=== PATIENT | female | born 1940 | race Caucasian/White ===

== ENCOUNTER 2017-10-18 15:27 | Emergency (ER) | payer MEDICARE, OTHER ==
[~2017-10-18] VITALS: Ht 167.6 cm; Wt 80.7 kg
[~2017-10-18 15:27] MED LIST: CHOL10002 PO; MULTI VITAMIN1 EACH PO; Norco 5-325 Ta1 EACH PO; OMEP20ER PO; Zestril40 MG PO
[2017-10-18 16:14] LABS: BASOPHILS ABSOLUTE AUTO 0.01 K/mm3 (0.00-0.23); BASOPHILS PERCENT AUTO 0 % (0-2); EOSINOPHILS ABSOLUTE AUTO 0.01 K/mm3 (0.00-0.68); EOSINOPHILS PERCENT AUTO 0 % (0-6); Hemoglobin 12.3 g/dL (11.5-16.0); IMMATURE GRAN ABSOLUTE AUTO 0.02 K/mm3 (0.00-0.10); IMMATURE GRAN PERCENT AUTO 0 % (0-1); LYMPHOCYTES ABSOLUTE AUTO 1.32 K/mm3 (0.84-5.20); LYMPHOCYTES PERCENT AUTO 19 % (21-46); MONOCYTES ABSOLUTE AUTO 0.51 K/mm3 (0.16-1.47); MONOCYTES PERCENT AUTO 7 % (4-13); Mean Corpuscular HGB 32.4 pg (26.0-34.0); Mean Corpuscular HGB Conc 34.2 g/dL (31.5-36.5); Mean Corpuscular Volume 95 fL (80-100); Mean Platelet Volume 9.5 fL (9.1-12.4); NEUTROPHILS ABSOLUTE AUTO 5.11 K/mm3 (1.96-9.15); NEUTROPHILS PERCENT AUTO 73 % (41-73); Platelet Count 191 K/mm3 (150-400); RDW Coefficient Variation 12.7 % (11.7-14.2); RDW Standard Deviation 44.2 fL (35.1-46.3); White Blood Cell Count 6.98 K/mm3 (4.00-11.30)
[2017-10-18 16:32] LABS: Alanine Aminotransfer (ALT/SGP 44 U/L (12-78); Albumin, Blood 3.6 g/dL (3.4-5.0); Albumin/Globulin Ratio 0.8 (0.8-1.8); Alk Phos 64 U/L (50-136); Anion Gap 10 mmol/L (6-16); Aspartate Aminotrans (AST/SGOT 34 U/L (12-37); Bilirubin, Total 0.6 mg/dL (0.1-1.0); Blood Urea Nitrogen 17 mg/dL (8-24); Bun/Creatinine Ratio 16.2 (12.0-20.0); CO2, Blood 20 mmol/L (21-32); Calcium, Blood 8.9 mg/dL (8.5-10.1); Chloride, Blood 103 mmol/L (98-108); Creatinine, Blood 1.05 mg/dL (0.40-1.00); Globulin, Blood 4.3 g/dL (2.2-4.0); Glomerular Filtration Rate 54 (60-); Glucose, Blood 117 mg/dL (70-99); Sodium, Blood 133 mmol/L (136-145); Total Protein, Blood 7.9 g/dL (6.4-8.2); Troponin I <0.015 ng/mL (0.000-0.040)
[2017-10-18] MEDS ORDERED: ACET325 PO (18:08)
[2017-10-18] MEDS ORDERED: ASPI81CH PO (18:09)
[2017-10-18] MEDS ORDERED: BENZ100A PO (18:50)
[2017-10-18] MEDS ORDERED: ALBU90OI INH (18:50)
[2017-10-18] MEDS ORDERED: Zithromax250 MG PO (18:50)
[2017-10-18] MEDS ORDERED: Prednisone20 MG PO (18:50)
== END 2017-10-18 21:06 | disposition home or self-care (01) ==
LOC: ER 15:27
PROVIDERS: Nurse Practitioner Family
DX: J18.9 Pneumonia, unspecified organism (principal); Z88.0 Allergy status to penicillin; Z88.8 Allergy status to other drugs, medicaments and biological substances; Z79.899 Other long term (current) drug therapy; Z79.82 Long term (current) use of aspirin; Z79.52 Long term (current) use of systemic steroids; Z79.2 Long term (current) use of antibiotics
CPT/HCPCS: 36415; 71046; 80053; 83880; 84484; 85025; 93005; 93010; 94640; 96374; 99284; J2930

== ENCOUNTER 2023-08-11 00:01 | Inpatient (IN) | payer MEDICARE, OTHER ==
[~2023-08-11] VITALS: Ht 167.6 cm; Wt 88.9 kg
[~2023-08-11 00:01] MED LIST changes: +ACET325 PO; +ALBU90OI INH; +ASPI81CH PO; +BENZ100A PO; +Prednisone20 MG PO; +Zithromax250 MG PO
[2023-08-11 00:35] LABS: BASOPHILS ABSOLUTE AUTO 0.04 K/mm3 (0.00-0.23); BASOPHILS PERCENT AUTO 1 % (0-2); EOSINOPHILS ABSOLUTE AUTO 0.02 K/mm3 (0.00-0.68); EOSINOPHILS PERCENT AUTO 0 % (0-6); Hematocrit 37.5 % (33.0-51.0); Hemoglobin 12.9 g/dL (11.5-16.0); IMMATURE GRAN ABSOLUTE AUTO 0.03 K/mm3 (0.00-0.10); IMMATURE GRAN PERCENT AUTO 0 % (0-1); LYMPHOCYTES PERCENT AUTO 22 % (21-46); MONOCYTES ABSOLUTE AUTO 0.59 K/mm3 (0.16-1.47); MONOCYTES PERCENT AUTO 7 % (4-13); Mean Corpuscular HGB 32.5 pg (26.0-34.0); Mean Corpuscular HGB Conc 34.4 g/dL (31.5-36.5); Mean Corpuscular Volume 95 fL (80-100); Mean Platelet Volume 10.3 fL (9.1-12.4); NEUTROPHILS ABSOLUTE AUTO 5.54 K/mm3 (1.96-9.15); NEUTROPHILS PERCENT AUTO 70 % (41-73); Platelet Count 230 K/mm3 (150-400); RDW Coefficient Variation 13.2 % (11.7-14.2); Red Blood Cell Count 3.97 M/mm3 (3.80-5.20); White Blood Cell Count 7.92 K/mm3 (4.00-11.30)
[2023-08-11 00:44] LABS: Base Excess Venous -1.7 mmol/L; Bicarbonate Venous 22.5 mmol/L (24.0-30.0); PCO2 Venous 45.4 mmHg (38-42); pH Blood Venous 7.34 (7.34-7.37)
[2023-08-11 01:41] LABS: Albumin, Blood 3.7 g/dL (3.4-5.0); Albumin/Globulin Ratio 0.9 (0.8-1.8); Bilirubin, Total 0.6 mg/dL (0.1-1.0); Bun/Creatinine Ratio 19.3 (12.0-20.0); Calcium, Blood 9.2 mg/dL (8.5-10.1); Creatinine, Blood 0.88 mg/dL (0.40-1.00); Globulin, Blood 3.9 g/dL (2.2-4.0); Potassium, Blood 3.8 mmol/L (3.5-5.5); Total Protein, Blood 7.6 g/dL (6.4-8.2)
[2023-08-11 01:46] LABS: Influenza A, PCR NEGATIVE (NEGATIVE); Influenza B, PCR NEGATIVE (NEGATIVE); SARS-Cov-2 (COVID-19) PCR, MMC NEGATIVE (NEGATIVE)
[2023-08-11 01:52] LABS: Resp Syncytial Virus, PCR POSITIVE (NEGATIVE)
[2023-08-11] MEDS ORDERED: Furosemide 10 MG / ML 2ML Vial IV ONE (02:50)
[2023-08-11] MEDS ORDERED: HydrALAZINE HCl 20 MG / ML 1ML Vial IV ONE (02:50)
[2023-08-11] MEDS ORDERED: Benzonatate 100 MG Cap PO ONE (02:55)
[2023-08-11] MEDS ORDERED: Ondansetron HCl 2 MG / ML 2ML Vial IV PRN (04:10)
[2023-08-11] MEDS ORDERED: FLU VACC QS2023-24(6MOS UP)/PF 60 MCG/0.5 ML SYRINGE IM ONE (04:10)
[2023-08-11] MEDS ORDERED: Acetaminophen 325 MG TABLET PO PRN (04:10)
[2023-08-11] MEDS ORDERED: Albuterol 2.5 MG/3 ML VIAL INH PRN (04:50)
[2023-08-11] MEDS ORDERED: Ipratropium/Albuterol SulF 2.5-0.5MG/3 ML Amp INH PRN (04:50)
[2023-08-11] MEDS ORDERED: NS 1,000 ML IV SCH (05:00)
[2023-08-11 06:05] VITALS: BP 209/81
[2023-08-11 06:07] VITALS: BP 190/96
[2023-08-11 07:25] VITALS: BP 163/75
[2023-08-11] MEDS ORDERED: MethylPREDNISolone Sod Succ 125 MG Vial IV SCH (09:00)
[2023-08-11] MEDS ORDERED: Furosemide 10 MG / ML 2ML Vial IV SCH (09:00)
[2023-08-11] MEDS ORDERED: HydrALAZINE HCl 20 MG / ML 1ML Vial IV PRN (09:00)
[2023-08-11 15:35] VITALS: BP 190/86
[2023-08-11] MEDS ORDERED: Losartan Potassium 25 MG Tab PO SCH (16:00)
--- NOTE | 2023-08-11 16:40 | NUR ---
DAYSHIFT SUMMARY Patient alert & oriented x4. Droplet isolation for RSV. Patient presents with SOB while in bed, wheezing noted t/o lungs. Sats stable on 4lpm O2 NC. IV Solumedrol adminstred, CBGs Q6H while taking steriods. Patient bedrest at this time, due to weakness, SOB with exertion. IV lasix administred Purewick in place. Vitals stable. Will continue plan of care.
[2023-08-11 20:27] VITALS: BP 130/59
[2023-08-11] MEDS ORDERED: Ipratropium/Albuterol SulF 2.5-0.5MG/3 ML Amp INH SCH (21:18)
--- NOTE | 2023-08-12 04:52 | NUR ---
Shift Summary Patient is an 83 year old female admitted with RSV and bronchitis. She is alert and oriented and uses her call light appropriatley. She has an IV in her left AC that is saline locked. She has wheezing and SOB. She recieved a prn breathing treatment early in the shift. This was helpful and she was able to sleep most of the night. She is on oxygen per NC at 4L. She has a purwick in place with yellow urine noted in the container. Bed is in low position with call light in reach. Side rails up x 2.
[2023-08-12 06:01] VITALS: BP 137/59
[2023-08-12 07:24] VITALS: BP 135/65
[2023-08-12] MEDS ORDERED: Losartan Potassium 25 MG Tab PO SCH (09:00)
[2023-08-12] MEDS ORDERED: Enoxaparin 40 MG/0.4 ML SYR SC SCH (09:00)
[2023-08-12 14:56] VITALS: BP 113/53
--- NOTE | 2023-08-12 16:54 | NUR ---
SHIFT SUMMARY PATIENT ON 4LPM O2 MOST OF DAY SATTING FROM 91-93%. SHE C/O BEING WEAK. SHE REFUSED TO GET UP TO COMMODE OR USE THE PUREWICK MUCH, AOX4 BUT FORGETS PUREWICK IS IN PLACE. PATIENT BLADDER SCANNED AT 359 WITH ONLY 100ML OUT. NOTIFIED. PUSH FLUIDS ORDERED AND TO GET PATIENT UP. 1 HOUR LATER PATIENT FOUND WALKING OUT OF RESTROOM WITH GOWN AND OXYGEN OFF, VISIBLY SHORT OF BREATH. SHE STATES SHE URINATED AND COULD NOT FIND HER CALL LIGHT. 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 POST VOID BLADDER SCAN IS 28ML.
[2023-08-12 22:25] VITALS: BP 127/67
--- NOTE | 2023-08-13 00:05 | NUR ---
RT ASSESSED PT, VOICED POST TREATMENT WAS BREATHING QUITE CONGESTED. ASKED IF PT MAY NEED MED TO ADDRESS IT. CALL PLACED TO MD FOR POSSIBLE ONE TIME ORDER OF LASIX, MD VOICED HE WOULD REVIEW CHART AND IF NEEDED HE WOULD ORDER IT. NO NEW ORDERS NOTED AT THIS TIME. PT HAS CALL LIGHT IN REACH. NOTE OCCASIONAL COUGH
[2023-08-13] MEDS ORDERED: Furosemide 10 MG/ML 4ML Vial IV ONE (02:10)
[2023-08-13 05:40] VITALS: BP 162/71
--- NOTE | 2023-08-13 06:49 | NUR ---
JEWEL BEARING MAKER SUMMARY BP ELEVATED, OTHERWISE VSS. DROPLET PRECAUIONS CONTINUE FOR RSV/BRONCHITIS. O2 4L/MIN PER NC. LUNG SOUNDS WERE QUITE CONGESTED EARLIER IN THE SHIFT. NOTIFIED AND ALDEN ORDERED AND ADMINISTERED - SEE MAR FOR DETAILS. PUREWICK IN USE PT CAN BGE UNSTEADY AND FOR SAFETY REASONS. A/O X 3. HAS BEEN RESTING MORE QUIETLY SINCE ALDEN ADMIN. CALL LIGHT IN REACH. RAILS UP X 2 FOR SAFETY, WILL CONINUE TO MONITOR
[2023-08-13 07:27] LABS: Bun/Creatinine Ratio 34.1 (12.0-20.0); Calcium, Blood 9.3 mg/dL (8.5-10.1); Creatinine, Blood 1.32 mg/dL (0.40-1.00); Potassium, Blood 3.6 mmol/L (3.5-5.5)
[2023-08-13 08:03] VITALS: BP 118/54
--- NOTE | 2023-08-13 11:33 | NUR ---
ASSUMED CARE OF PT
--- NOTE | 2023-08-13 17:58 | NUR ---
SHIFT SUMMARY: DROPLET PRECAUTIONS CONTINUED D/T RSV. PT IMPULSIVE AND FORGETFUL BUT IS EASILY DIRECTABLE. PT C/O PAIN IN LOWER BACK. MEDICATED PER EMAR. E. PT CURRENTLY ON 4L STATING SHE HAS BEEN HAVING INCREASED SOB. WHEEZE/CRACKLES NOTED THROUGHOUT BASES. CALL LIGHT IN REACH. BED IN LOWEST POSITION. WILL REPORT TO ONCOMING RN.
[2023-08-13 19:23] VITALS: BP 148/69
--- NOTE | 2023-08-14 04:04 | NUR ---
SHIFT SUMMARY DARRION WAS ALERT AND ANSWERED ALL ORIENTATION QUESTIONS CORRECTLY ON ASSESSMENT. PT DID BECOME INCREASINGLY CONFUSED DURING THE NIGHT, BUT IS EASILY REORIENTED AND REDIRECTABLE. PT DENIES INCREASED SOB FROM BASELINE OR CHEST PAIN/PRESSURE. PT HAS A MOIST SOUNDING INTERMITTENT COUGH, BUT IS MAINTAINING O2 SATS IN LOW 90'S ON 2L VIA NC. NO ACUTE EVENTS TONIGHT, NO NOTED CHANGES TO PT CONDITION. PT RESTING IN BED AT THIS TIME AT A LOW POSITION WITH CALL LIGHT IN REACH AND BED ALARM IN PLACE.
[2023-08-14 04:07] VITALS: BP 163/80
[2023-08-14 07:49] VITALS: BP 175/80
[2023-08-14] MEDS ORDERED: PredniSONE 20 MG Tab PO SCH (09:00)
[2023-08-14 15:51] VITALS: BP 132/50
--- NOTE | 2023-08-14 17:42 | NUR ---
SHIFT SUMMARY PATIENT A&OX3, EASILY REDIRECTABLE. DENIED CP/PRESSURE, HEADACHE, OR DIZZINESS. SOB NOTED. PRODUCTIVE COUGH T/O SHIFT. SHE HAS BEEN ON ROOM AIR SINCE THIS MORNING AND SATTING BETWEEN 90-93%. COMPLAINED OF "LITTLE PAIN" TO HER LUNGS/CHEST AND MEDICATED WITH APAP PER EMAR PROTOCOL. NO ACUTE CHANGES THIS SHIFT. SHE IS CURRENTLY LAYING IN BED. AT BEDSIDE. CALL LIGHT WITHIN REACH.
[2023-08-14 19:19] VITALS: BP 133/59
[2023-08-15 04:04] VITALS: BP 190/75
--- NOTE | 2023-08-15 05:20 | NUR ---
PATIENT IS ALERT AND ORIENTED. ON ROOM AIR. WITH PIV LINE ON LEFT AC PATENT AND INTACT. ON HD MWF, FISTULA ON RIGHT UPPER ARM, (+) THRILL. ON TELE MONITORING. COMPLAINT OF PAIN, MEDICATED ACCORDINGLY. NEEDS ATTENDED. CALL LIGHT WITHIN PATIENT'S REACH. WILL CONTINUE TO MONITOR.
--- NOTE | 2023-08-15 05:25 | NUR ---
PATIENT IS ALERT AND ORIENTED X3. ON CONT BIOX MONITORING. WITH PIV LINE ON LEFT AC PATENT AND INTACT. BLOOD SUGAR CHECK MONITORING WAS DECREASED TO TID. COMPLAINT OF PAIN, MEDICATED ACCORDINGLY. WAS ABLE TO AMBULATE TO THE [facility], ON SBA X1 USING A FWW. ON ISOLATION D/T RSV. BLOOD PRESSURE WENT UP THIS MORNING, MEDICATED ACCORDINGLY. NEEDS ATTENDED. CALL LIGHT WITHIN PATIENT'S REACH. WILL CONTINUE TO MONITOR.
[2023-08-15 06:46] VITALS: BP 150/73
--- NOTE | 2023-08-15 07:30 | NUR ---
ASSUMED CARE: PT CURRENTLY ON 2L O2 VIA NC. 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 NO ACUTE NEEDS OR CONCERNS AT THIS TIME.
[2023-08-15 07:51] VITALS: BP 137/62
[2023-08-15 09:26] LABS: Bun/Creatinine Ratio 40.9 (12.0-20.0); Calcium, Blood 9.3 mg/dL (8.5-10.1); Creatinine, Blood 0.95 mg/dL (0.40-1.00); Potassium, Blood 4.1 mmol/L (3.5-5.5)
--- NOTE | 2023-08-15 13:40 | NUR ---
DISCHARGE ORDERS IN PLACE. PT STATES SHE DOES NOT HAVE OXYGEN AT HOME AND DOES NOT USE NEBULIZER. CALL TO WHO STATED HE WILL PLACE THESE ORDERS PRIOR TO DISCHARGE.
[2023-08-15] MEDS ORDERED: IPRAT-ALBUT 0.5-3 ML INH (13:45)
[2023-08-15] MEDS ORDERED: LOSA25 PO (13:45)
[2023-08-15] MEDS ORDERED: PRED20 PO (13:45)
[2023-08-15] MEDS ORDERED: ALBU90OI INH (15:17)
[2023-08-15] MEDS ORDERED: COMBIVENT RESPIM4 G1 INH (15:17)
--- NOTE | 2023-08-15 17:21 | NUR ---
DISCHARGE: PT GIVEN DISCHARGE INSTRUCTIONS REGARDING NEW MEDICATIONS AND FOLLOW UP APPOINTMENTS. MARLENE BROUGHT HOME O2 AFTER HOME O2 EVALUATION COMPLETED. ESCORTED OUT VIA WHEELCHAIR BY HOSPITAL STAFF. IV DC'D WNL. DENIED FURTHER NEEDS OR CONCERNS AT THIS TIME.
== END 2023-08-15 17:15 | disposition home health service (06) | DRG 189 ==
LOC: ER 00:01 → MEDS 00:02 → ENPENDDIS 08-15 13:23 → MEDS 08-15 17:15
PROVIDERS: Emergency Medicine; Family Medicine; Hospitalist; ADMIT Internal Medicine
DX: J96.91 Respiratory failure, unspecified with hypoxia (principal); J96.92 Respiratory failure, unspecified with hypercapnia; I10 Essential (primary) hypertension; I25.10 Atherosclerotic heart disease of native coronary artery without angina pectoris; R41.81 Age-related cognitive decline; R78.9 Finding of unspecified substance, not normally found in blood; J20.5 Acute bronchitis due to respiratory syncytial virus; Z79.82 Long term (current) use of aspirin; Z86.73 Personal history of transient ischemic attack (TIA), and cerebral infarction without residual deficits; I25.2 Old myocardial infarction; Z11.52 Encounter for screening for COVID-19; Z28.21 Immunization not carried out because of patient refusal
CPT/HCPCS: 0241U; 36415; 71045; 80048; 80053; 82803; 82947; 83880; 84145; 84484; 85025; 93005; 93010; 93306; 94640; 94664; 94761; 94762; 96372; 96374; 96375; 96376; 97110; 97129; 97162; 97165; 97530; 97535; 99285-25; A9270; G0378; J0360; J1650; J1940; J2930; J7512

== ENCOUNTER 2023-08-17 17:43 | Emergency (ER) | payer MEDICARE, OTHER ==
[~2023-08-17] VITALS: Ht 167.6 cm; Wt 90.7 kg
[~2023-08-17 17:43] MED LIST changes: +COMBIVENT RESPIM4 G1 INH; +IPRAT-ALBUT 0.5-3 ML INH; +LOSA25 PO; +PRED20 PO
[2023-08-17] MEDS ORDERED: Ipratropium/Albuterol SulF 2.5-0.5MG/3 ML Amp INH ONE (18:15)
[2023-08-17 18:16] LABS: Base Excess Venous -1.8 mmol/L; pH Blood Venous 7.52 (7.34-7.37)
[2023-08-17 18:25] LABS: BASOPHILS ABSOLUTE AUTO 0.02 K/mm3 (0.00-0.23); BASOPHILS PERCENT AUTO 0 % (0-2); EOSINOPHILS PERCENT AUTO 0 % (0-6); Hematocrit 36.5 % (33.0-51.0); Hemoglobin 12.6 g/dL (11.5-16.0); IMMATURE GRAN ABSOLUTE AUTO 0.15 K/mm3 (0.00-0.10); IMMATURE GRAN PERCENT AUTO 1 % (0-1); LYMPHOCYTES ABSOLUTE AUTO 1.11 K/mm3 (0.84-5.20); LYMPHOCYTES PERCENT AUTO 9 % (21-46); MONOCYTES ABSOLUTE AUTO 0.68 K/mm3 (0.16-1.47); MONOCYTES PERCENT AUTO 6 % (4-13); Mean Corpuscular HGB 31.7 pg (26.0-34.0); Mean Corpuscular HGB Conc 34.5 g/dL (31.5-36.5); Mean Corpuscular Volume 92 fL (80-100); Mean Platelet Volume 9.7 fL (9.1-12.4); NEUTROPHILS ABSOLUTE AUTO 10.26 K/mm3 (1.96-9.15); NEUTROPHILS PERCENT AUTO 84 % (41-73); Platelet Count 308 K/mm3 (150-400); RDW Coefficient Variation 13.1 % (11.7-14.2); RDW Standard Deviation 44.4 fL (35.1-46.3); Red Blood Cell Count 3.97 M/mm3 (3.80-5.20); White Blood Cell Count 12.22 K/mm3 (4.00-11.30)
[2023-08-17 18:39] LABS: Albumin, Blood 3.3 g/dL (3.4-5.0); Albumin/Globulin Ratio 0.8 (0.8-1.8); Bilirubin, Total 0.8 mg/dL (0.1-1.0); Calcium, Blood 9.2 mg/dL (8.5-10.1); Creatinine, Blood 1.35 mg/dL (0.40-1.00); Globulin, Blood 4.1 g/dL (2.2-4.0); Potassium, Blood 4.5 mmol/L (3.5-5.5); Total Protein, Blood 7.4 g/dL (6.4-8.2)
[2023-08-17 20:30] VITALS: BP 173/133
== END 2023-08-17 20:58 | disposition home or self-care (01) ==
LOC: ER 17:43
PROVIDERS: Emergency Medicine
DX: J21.0 Acute bronchiolitis due to respiratory syncytial virus (principal); F41.9 Anxiety disorder, unspecified; I25.2 Old myocardial infarction; Z86.73 Personal history of transient ischemic attack (TIA), and cerebral infarction without residual deficits; Z79.899 Other long term (current) drug therapy; Z88.0 Allergy status to penicillin; Z88.8 Allergy status to other drugs, medicaments and biological substances
CPT/HCPCS: 71045; 80053; 82803; 83605; 83735; 83880; 84145; 84484; 85025; 93005; 93010; 94640; 94664; 99285-25